=== PATIENT | female | born 1975 | race Caucasian/White ===

== ENCOUNTER 2018-03-01 12:43 | Inpatient (IN) | payer BC ==
[2018-03-01] MEDS ORDERED: Misoprostol 200 MCG Tab PO PRN (13:13)
[2018-03-01] MEDS ORDERED: Nalbuphine 10 MG/1 ML Vial IVPUSH PRN (13:13)
[2018-03-01] MEDS ORDERED: Methylergonovine 0.2 MG/1 ML Amp IM PRN (13:13)
[2018-03-01] MEDS ORDERED: Carboprost Tromethamine 250 MCG/1 ML Amp IM PRN ×2 (13:13→21:44)
[2018-03-01] MEDS ORDERED: Tranexamic Acid 1,000 MG in Sodium Chloride 0.9% 100 ML IV PRN (13:13)
[2018-03-01] MEDS ORDERED: Sodium Chloride 0.9% 10 ML Syringe FLUSH PRN (13:13)
[2018-03-01] MEDS ORDERED: Water For Irrigation,Sterile 1,000 ML Container IRR PRN (13:13)
[2018-03-01] MEDS ORDERED: Calcium Gluconate 10% 1 GM/10 ML SDV IV PRN (13:13)
[2018-03-01] MEDS ORDERED: Butorphanol 1 MG/ML SDV IVPUSH PRN (13:13)
[2018-03-01] MEDS ORDERED: Terbutaline 1 MG/ML SDV SUBCUT PRN (13:13)
[2018-03-01] MEDS ORDERED: Sodium Chloride 0.9% 2.5 ML Syringe FLUSH PRN (13:13)
[2018-03-01] MEDS ORDERED: Magnesium Sulfate/Water 4 GM in Premix Bag 1 BAG IV ONE (13:13)
[2018-03-01] MEDS ORDERED: Lidocaine 1% 50 ML MDV INJECT PRN (13:13)
[2018-03-01] MEDS ORDERED: Lactated Ringers 1,000 ML IV SCH (13:15)
[2018-03-01] MEDS ORDERED: Oxytocin/0.9 % Sodium Chloride 30 UNIT/500 ML BAG IV SCH ×2 (13:15)
[2018-03-01] MEDS: Sodium Chloride 0.9% 1,000 ML IV SCH ×2 (14:15→22:28)
[2018-03-01] MEDS: Magnesium Sulfate/Water 40 GM/1,000 ML BAG IV SCH (14:45)
[2018-03-01] MEDS ORDERED: Ropivacaine 0.2% 2 MG/ML 20 ML SDV ONE (19:38)
--- NOTE | 2018-03-01 20:12 | PCM.PREANE ---
Preanesthetic Assessment - Anesthesia/Transfusion/Family Hx Anesthesia History: Prior Anesthesia Without Reaction Other Type of Anesthesia Reaction Comment: difficulty waking up from anesthesia Family History of Anesthesia Reaction: No Transfusion History: No Prior Transfusion(s) - Review of Systems General: No Symptoms Pulmonary: No Symptoms Cardiovascular: No Symptoms Gastrointestinal: No Symptoms Neurological: No Symptoms Other: Reports: None - Physical Assessment NPO Status Date: 03/01/18 NPO Status Time: 12:00 Height: 1.61 m Weight: 80.467 kg ASA Class: 3 Mental Status: Alert & Oriented x3 Airway Class: Mallampati = 1 Dentition: Reports: Normal Dentition ROM/Head Extension: Full Lungs: Clear to Auscultation, Normal Respiratory Effort Cardiovascular: Regular Rate, Regular Rhythm - Lab Values: Laboratory Last Values WBC 6.61 K/uL (4.0-11.0) 03/01/18 13:45 RBC 3.58 M/uL (4.30-5.90) L 03/01/18 13:45 Hgb 11.4 g/dL (12.0-16.0) L 03/01/18 13:45 Hct 33.1 % (36.0-46.0) L 03/01/18 13:45 MCV 92.5 fL (80.0-98.0) 03/01/18 13:45 MCH 31.8 pg (27.0-32.0) 03/01/18 13:45 MCHC 34.4 g/dL (31.0-37.0) 03/01/18 13:45 RDW Std Deviation 45.4 fl (28.0-62.0) 03/01/18 13:45 RDW Coeff of Lashawn 14 % (11.0-15.0) 03/01/18 13:45 Plt Count 81 K/uL (150-400) L 03/01/18 13:45 MPV 13.50 fL (7.40-12.00) H 03/01/18 13:45 Nucleated RBC % 0.0 /100WBC 03/01/18 13:45 Nucleated RBCs # 0 K/uL 03/01/18 13:45 Magnesium 4.4 mg/dL (1.8-2.4) H 03/01/18 19:14 Blood Type A POSITIVE 03/01/18 13:45 Antibody Screen NEGATIVE 03/01/18 13:45 - Allergies Allergies/Adverse Reactions: Allergies Allergy/AdvReac Type Severity Reaction Status Date / Time latex Allergy Other Verified 06/22/17 11:46 - Acknowledgements Anesthesia Type Planned: Epidural Pt an Appropriate Candidate for the Planned Anesthesia: Yes Alternatives and Risks of Anesthesia Discussed w Pt/Guardian: Yes Pt/Guardian Understands and Agrees with Anesthesia Plan: Yes Additional Comments: twin , vertex,vertex, has thrombocytopenia plts 81k, and preeclampsia. Epidural placed without difficulty or signs of trauma. no comps. 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: Hematologic History: Reports: Other (See Below) Other Hematologic History: gestational thrombocytopenia - SUBSTANCE USE Smoking Status *Q: Former Smoker Tobacco Use Within Last Twelve Months: Cigarettes Second Hand Smoke Exposure: No Recreational Drug Use History: No - CURRENT (IN HOUSE) MEDS Current Meds: Current Medications Butorphanol Tartrate (Stadol) 1 mg IVPUSH Q1H PRN PRN Reason: Pain Calcium Gluconate (Calcium Gluconate) 1 gm IV ASDIRECTED PRN PRN Reason: respiratory distress Carboprost Tromethamine (Hemabate Ds) 250 mcg IM ASDIRECTED PRN PRN Reason: Post Hemorrhage Lactated Ringer's (Ringers, Lactated) 1,000 mls @ 150 mls/hr IV ASDIRECTED LOGAN Magnesium Sulfate (Magnesium Sulfate 40 Gm In Water 1000 Ml) 40 gm in 1,000 mls @ 50 mls/hr IV ASDIRECTED LOGAN Last Admin: 03/01/18 14:45 Dose: 2 gm/hr, 50 mls/hr Oxytocin/Sodium Chloride (Oxytocin 30 Unit/500 Ml-Ns) 30 unit in 500 mls @ 2 mls/hr IV TITRATE LOGAN; Protocol Last Titration: 03/01/18 17:59 Dose: 12 munits/min, 12 mls/hr Oxytocin/Sodium Chloride (Oxytocin 30 Unit/500 Ml-Ns) 30 unit in 500 mls @ 500 mls/hr IV TITRATE LOGAN Tranexamic Acid 1,000 mg/ (Sodium Chloride) 110 mls @ 660 mls/hr IV ONETIME PRN PRN Reason: Bleeding Lidocaine HCl (Xylocaine 1%) 50 ml INJECT ONETIME PRN PRN Reason: Laceration repair Methylergonovine Maleate (Methergine) 0.2 mg IM ASDIRECTED PRN PRN Reason: Post Hemorrhage Misoprostol (Cytotec) 200 mcg PO ONETIME PRN PRN Reason: Post Hemorrhage Nalbuphine HCl (Nubain) 10 mg IVPUSH Q1H PRN PRN Reason: Pain (severe 7-10) Sodium Chloride (Saline Flush) 10 ml FLUSH ASDIRECTED PRN PRN Reason: Keep Vein Open Sodium Chloride (Saline Flush) 2.5 ml FLUSH ASDIRECTED PRN PRN Reason: Keep Vein Open Sterile Water (Sterile Water For Irrigation) 1,000 ml IRR ASDIRECTED PRN PRN Reason: delivery Terbutaline Sulfate (Brethine) 0.25 mg SUBCUT ASDIRECTED PRN PRN Reason: Tacysystole Discontinued Medications Magnesium Sulfate 4 gm/ Premix 100 mls @ 300 mls/hr IV BOLUS ONE Stop: 03/01/18 13:32 Last Admin: 03/01/18 14:20 Dose: 300 mls/hr Fentanyl/Bupivacaine HCl (Jjomdcmn-Qqbal-Fk 2 Mcg/Ml-0.125%) Confirm Administered Dose 100 mls @ as directed EP .STK-MED ONE Stop: 03/01/18 19:38 Ropivacaine (Naropin 0.2%) Confirm Administered Dose 20 ml .ROUTE .STK-MED ONE Stop: 03/01/18 19:39
[2018-03-01] MEDS ORDERED: Benzocaine/Menthol 20%-0.5% Spray 78 GM Cannister ONE (21:44)
[2018-03-01] MEDS ORDERED: Benzocaine/Menthol 20%-0.5% Spray 78 GM Cannister TOP PRN (21:44)
[2018-03-01] MEDS ORDERED: Lanolin 100% Cream 7 GM Tube TOP PRN (21:44)
[2018-03-01] MEDS ORDERED: Bisacodyl 10 MG Supp RECTAL PRN (21:44)
[2018-03-01] MEDS ORDERED: Docusate Sodium 100 MG Cap ONE (21:44)
[2018-03-01] MEDS ORDERED: Witch Hazel Medicated Pads 40/Jar TOP PRN (21:44)
[2018-03-01] MEDS ORDERED: Acetaminophen 500 MG Tab PO PRN (21:44)
--- NOTE | 2018-03-01 21:56 | PCM.DEL ---
L & D Note - General Info Date of Service: 03/01/18 Mother's Due Date: 03/20/18 - Delivery Note Labor: Induced by Oxytocin Cervical Ripening Method: Oxytocin Delivery Outcome: Livebirth Delivery Method: Spontaneous Vaginal Delivery-Twins Presentation: Right Occiput Anterior (NEEL) (Twin A NEEL Twin B) Nuchal Cord: None (A none B) Prep: Other Anesthesia Type: Epidural Amniotic Fluid Description: Clear (A and B) Episiotomy Type: None Laceration: None Placenta: Intact, Spontaneous (Diamniotic possible monochorionic, await pathology results. ) Cord: 3 Vessels (A and B) Estimated Blood Loss: 300 Resuscitation Needed: No [place]: Suctioned Provider: Cherie Brady Score 1 min: 8 (B 9) Score 5 min: 9 (B 9) Second Stage Interventions: Reports: Pushing, Feet in Foot Rests Delivery Comments (Free Text/Narrative):: Baby A liveborn female 8/9 weight 3370 grams. Baby B 9/9 2020 grams. - General Info Date of Service: 03/01/18 - Patient Data Weight - Most Recent: 80.467 kg Lab Results Last 24 Hours: Laboratory Results - last 24 hr 03/01/18 03/01/18 03/01/18 Range/Units 13:45 13:45 19:14 WBC 6.61 (4.0-11.0) K/uL RBC 3.58 L (4.30-5.90) M/uL Hgb 11.4 L (12.0-16.0) g/dL Hct 33.1 L (36.0-46.0) % MCV 92.5 (80.0-98.0) fL MCH 31.8 (27.0-32.0) pg MCHC 34.4 (31.0-37.0) g/dL RDW Std Deviation 45.4 (28.0-62.0) fl RDW Coeff of Lashawn 14 (11.0-15.0) % Plt Count 81 L (150-400) K/uL MPV 13.50 H (7.40-12.00) fL Nucleated RBC % 0.0 /100WBC Nucleated RBCs # 0 K/uL Magnesium 4.4 H (1.8-2.4) mg/dL Blood Type A POSITIVE Antibody Screen NEGATIVE Med Orders - Current: Current Medications Acetaminophen (Tylenol Extra Strength) 500 mg PO Q4H PRN PRN Reason: Pain Acetaminophen (Tylenol Extra Strength) 1,000 mg PO Q4H PRN PRN Reason: Pain Benzocaine/Menthol (Dermoplast Pain Relief 20%-0.5% [place]) 78 gm TOP ASDIRECTED PRN PRN Reason: Perineal Comfort Measure Bisacodyl (Dulcolax) 10 mg RECTAL ONETIME PRN PRN Reason: Constipation Butorphanol Tartrate (Stadol) 1 mg IVPUSH Q1H PRN PRN Reason: Pain Calcium Gluconate (Calcium Gluconate) 1 gm IV ASDIRECTED PRN PRN Reason: respiratory distress Carboprost Tromethamine (Hemabate Ds) 250 mcg IM ASDIRECTED PRN PRN Reason: Post Hemorrhage Carboprost Tromethamine (Hemabate Ds) 250 mcg IM ASDIRECTED PRN PRN Reason: Excessive vaginal bleeding Docusate Sodium (Colace) 100 mg PO BID PRN PRN Reason: Constipation Emollient Ointment (Lansinoh Hpa) 0 gm TOP ASDIRECTED PRN PRN Reason: Sore Nipples Lactated Ringer's (Ringers, Lactated) 1,000 mls @ 150 mls/hr IV ASDIRECTED LOGAN Magnesium Sulfate (Magnesium Sulfate 40 Gm In Water 1000 Ml) 40 gm in 1,000 mls @ 50 mls/hr IV ASDIRECTED LOGAN Last Admin: 03/01/18 14:45 Dose: 2 gm/hr, 50 mls/hr Oxytocin/Sodium Chloride (Oxytocin 30 Unit/500 Ml-Ns) 30 unit in 500 mls @ 2 mls/hr IV TITRATE LOGAN; Protocol Last Titration: 03/01/18 17:59 Dose: 12 munits/min, 12 mls/hr Oxytocin/Sodium Chloride (Oxytocin 30 Unit/500 Ml-Ns) 30 unit in 500 mls @ 500 mls/hr IV TITRATE LOGAN Tranexamic Acid 1,000 mg/ (Sodium Chloride) 110 mls @ 660 mls/hr IV ONETIME PRN PRN Reason: Bleeding Lidocaine HCl (Xylocaine 1%) 50 ml INJECT ONETIME PRN PRN Reason: Laceration repair Methylergonovine Maleate (Methergine) 0.2 mg IM ASDIRECTED PRN PRN Reason: Post Hemorrhage Misoprostol (Cytotec) 200 mcg PO ONETIME PRN PRN Reason: Post Hemorrhage Nalbuphine HCl (Nubain) 10 mg IVPUSH Q1H PRN PRN Reason: Pain (severe 7-10) Oxycodone HCl (Oxycodone) 5 mg PO Q2H PRN PRN Reason: Pain Sodium Chloride (Saline Flush) 10 ml FLUSH ASDIRECTED PRN PRN Reason: Keep Vein Open Sodium Chloride (Saline Flush) 2.5 ml FLUSH ASDIRECTED PRN PRN Reason: Keep Vein Open Sterile Water (Sterile Water For Irrigation) 1,000 ml IRR ASDIRECTED PRN PRN Reason: delivery Terbutaline Sulfate (Brethine) 0.25 mg SUBCUT ASDIRECTED PRN PRN Reason: Tacysystole Witch Marci (Tucks) 1 pad TOP ASDIRECTED PRN PRN Reason: comfort care Discontinued Medications Benzocaine/Menthol (Dermoplast Pain Relief 20%-0.5% [place]) Confirm Administered Dose 78 gm .ROUTE .STK-MED ONE Stop: 03/01/18 21:45 Docusate Sodium (Colace) Confirm Administered Dose 100 mg .ROUTE .STK-MED ONE Stop: 03/01/18 21:45 Magnesium Sulfate 4 gm/ Premix 100 mls @ 300 mls/hr IV BOLUS ONE Stop: 03/01/18 13:32 Last Admin: 03/01/18 14:20 Dose: 300 mls/hr Fentanyl/Bupivacaine HCl (Uagmfesr-Yxflx-Eq 2 Mcg/Ml-0.125%) Confirm Administered Dose 100 mls @ as directed EP .STK-MED ONE Stop: 03/01/18 19:38 Ropivacaine (Naropin 0.2%) Confirm Administered Dose 20 ml .ROUTE .STK-MED ONE Stop: 03/01/18 19:39 - Problem List & Annotations (1) Twin SNOMED Code(s): 04725291 Code(s): Z37.9 - OUTCOME OF DELIVERY, UNSPECIFIED Status: Acute Current Visit: Yes (2) Preeclampsia SNOMED Code(s): 281464285 Code(s): O14.90 - UNSPECIFIED PRE-ECLAMPSIA, UNSPECIFIED TRIMESTER Status: Acute Current Visit: Yes (3) Gestational thrombocytopenia without hemorrhage SNOMED Code(s): 008914395 Code(s): O99.119 - OTH DIS OF BLD/BLD-FORM ORG/IMMUN MECHNSM COMP PREG,UNSP TRI; D69.6 - THROMBOCYTOPENIA, UNSPECIFIED Status: Acute Current Visit: Yes (4) Elderly multigravida delivered SNOMED Code(s): 695814289 Code(s): O09.529 - SUPERVISION OF ELDERLY MULTIGRAVIDA, UNSPECIFIED TRIMESTER Status: Acute Current Visit: Yes - Problem List Review Problem List Initiated/Reviewed/Updated: Yes - My Orders Last 24 Hours: My Active Orders 03/01/18 13:13 Bedrest Bathroom Privileges [RC] ASDIRECTED Bedrest [RC] ASDIRECTED Communication Order [RC] PRN Height and Weight [RC] DAILY Intake and Output [RC] QSHIFT May Shower [RC] ASDIRECTED Notify Provider [RC] PRN Oxygen Therapy [RC] ASDIRECTED Up ad Rina [RC] ASDIRECTED Vital Signs [RC] ASDIRECTED Butorphanol [Stadol] 1 mg IVPUSH Q1H PRN Calcium Gluconate 1 gm IV ASDIRECTED PRN Carboprost Tromethamine [Hemabate DS] 250 mcg IM ASDIRECTED PRN Lidocaine 1% [Xylocaine 1%] 50 ml INJECT ONETIME PRN Methylergonovine [Methergine] 0.2 mg IM ASDIRECTED PRN Nalbuphine [Nubain] 10 mg IVPUSH Q1H PRN Sodium Chloride 0.9% [Saline Flush] 10 ml FLUSH ASDIRECTED PRN Sodium Chloride 0.9% [Saline Flush] 2.5 ml FLUSH ASDIRECTED PRN Terbutaline [Brethine] 0.25 mg SUBCUT ASDIRECTED PRN Tranexamic Acid [Cyklokapron] 1,000 mg Sodium Chloride 0.9% [Normal Saline] 100 ml IV ONETIME Water For Irrigation,Sterile [Sterile Water for Irrigation] 1,000 ml IRR ASDIRECTED PRN miSOPROStol [Cytotec] 200 mcg PO ONETIME PRN Electronic Heart Tones Ext w TOCO [WOMSER] Per Unit Routine Scalp Electrode [WOMSER] Per Unit Routine Peripheral IV Insertion Adult [OM.PC] Routine Peripheral IV Insertion Adult [OM.PC] Routine Resuscitation Status Routine 03/01/18 13:15 Lactated Ringers [Ringers, Lactated] 1,000 ml IV ASDIRECTED Magnesium Sulfate/Water [Magnesium Sulfate 40 GM in Water 1000 ML] 40 gm in 1, 000 ml IV ASDIRECTED Oxytocin/0.9 % Sodium Chloride [Oxytocin 30 Unit/500 ML-NS] 30 unit in 500 ml IV TITRATE Oxytocin/0.9 % Sodium Chloride [Oxytocin 30 Unit/500 ML-NS] 30 unit in 500 ml IV TITRATE Deep Tendon Reflexes [WOMSER] Q1H Medication Administration Instruction [OM.PC] Q3H 03/01/18 13:18 Equipment to Bedside [RC] PRN Notify Provider Status Change [RC] ASDIRECTED 03/01/18 14:15 Deep Tendon Reflexes [WOMSER] Q1H 03/01/18 15:15 Deep Tendon Reflexes [WOMSER] Q1H 03/01/18 16:15 Deep Tendon Reflexes [WOMSER] Q1H 03/01/18 17:15 Deep Tendon Reflexes [WOMSER] Q1H 03/01/18 18:15 Deep Tendon Reflexes [WOMSER] Q1H 03/01/18 19:15 Deep Tendon Reflexes [WOMSER] Q1H 03/01/18 20:15 Deep Tendon Reflexes [WOMSER] Q1H 03/01/18 21:00 BLOOD GAS ARTERIAL UMBILICAL [BG] Routine BLOOD GAS VENOUS UMBILICAL [BG] Routine 03/01/18 21:05 BLOOD GAS ARTERIAL UMBILICAL [BG] Urgent BLOOD GAS VENOUS UMBILICAL [BG] Urgent 03/01/18 21:15 Deep Tendon Reflexes [WOMSER] Q1H 03/01/18 21:44 Patient Status [ADT] Routine Vital Signs [RC] PER UNIT ROUTINE Acetaminophen [Tylenol Extra Strength] 1,000 mg PO Q4H PRN Acetaminophen [Tylenol Extra Strength] 500 mg PO Q4H PRN Benzocaine/Menthol [Dermoplast Pain Relief 20%-0.5% [place]] 78 gm TOP ASDIRECTED PRN Bisacodyl [Dulcolax] 10 mg RECTAL ONETIME PRN Carboprost Tromethamine [Hemabate DS] 250 mcg IM ASDIRECTED PRN Docusate Sodium [Colace] 100 mg PO BID PRN Lanolin [Lansinoh HPA] See Dose Instructions TOP ASDIRECTED PRN Sunita Covarrubias [Tucks] 1 pad TOP ASDIRECTED PRN oxyCODONE 5 mg PO Q2H PRN Assess Lochia [WOMSER] Per Unit Routine Assess Uterine Involution [WOMSER] Per Unit Routine Perineal Care [OM.PC] Per Unit Routine Peripheral IV Discontinue [OM.PC] Routine 03/01/18 21:45 Notify Provider Vital Signs [RC] ASDIRECTED 03/01/18 22:15 Deep Tendon Reflexes [WOMSER] Q1H 03/01/18 23:15 Deep Tendon Reflexes [WOMSER] Q1H 03/01/18 Dinner Clear Liquid Diet [DIET] 03/02/18 00:15 Deep Tendon Reflexes [WOMSER] Q1H 03/02/18 01:00 MAGNESIUM [CHEM] Q6 03/02/18 01:15 Deep Tendon Reflexes [WOMSER] Q1H 03/02/18 02:15 Deep Tendon Reflexes [WOMSER] Q1H 03/02/18 03:15 Deep Tendon Reflexes [WOMSER] Q1 03/02/18 04:15 Deep Tendon Reflexes [WOMSER] Q1 03/02/18 05:11 CBC W/O DIFF,HEMOGRAM [HEME] AM 03/02/18 05:15 Deep Tendon Reflexes [WOMSER] Q1H 03/02/18 06:15 Deep Tendon Reflexes [WOMSER] Q1H 03/02/18 07:00 MAGNESIUM [CHEM] Q6H 03/02/18 07:15 Deep Tendon Reflexes [WOMSER] Q1H 03/02/18 08:15 Deep Tendon Reflexes [WOMSER] Q1 03/02/18 09:15 Deep Tendon Reflexes [WOMSER] Q1 03/02/18 10:15 Deep Tendon Reflexes [WOMSER] Q1H 03/02/18 11:15 Deep Tendon Reflexes [WOMSER] Q1H 03/02/18 12:15 Deep Tendon Reflexes [WOMSER] Q1H 03/02/18 13:00 MAGNESIUM [CHEM] Q6H 03/02/18 19:00 MAGNESIUM [CHEM] Q6H 03/03/18 01:00 MAGNESIUM [CHEM] Q6H 03/03/18 07:00 MAGNESIUM [CHEM] Q6H 03/03/18 13:00 MAGNESIUM [CHEM] Q6H
[2018-03-01] MEDS: Docusate Sodium 100 MG Cap PO PRN (23:07)
--- NOTE | 2018-03-02 02:14 | OR ---
SURGEON: Summer Lemon M.D. DATE OF PROCEDURE: 03/01/2018 PREOPERATIVE DIAGNOSES: 1. 37 and 2/7 week intrauterine . 2. Diamniotic dichorionic twin gestation, advanced maternal age. 3. Mild preeclampsia. 4. Gestational thrombocytopenia. 5. Discordant growth. POSTOPERATIVE DIAGNOSES: 1. 37 and 2/7 week intrauterine . 2. Diamniotic dichorionic twin gestation, advanced maternal age. 3. Mild preeclampsia. 4. Gestational thrombocytopenia. 5. Discordant growth. PROCEDURE: 1. Pitocin induction of labor. 2. Magnesium seizure prophylaxis. 3. Term spontaneous vaginal delivery of twin gestation. ANESTHESIA: Epidural. ESTIMATED BLOOD LOSS: Less than 300 mL. FINDINGS: Fetus A, liveborn female, score 8 and 9, weighing 7 pounds, 7 ounces or 3370 g. Fetus B, liveborn female, scores 9 and 9. Weighing 2020 g or 4 pounds 7 ounces. Placenta delivered spontaneously, Ellis intact. Both cords had 3 vessels. Diamniotic placenta was noted, unable to determine chorionicity. Will send placenta to Pathology. COMPLICATIONS: None known. DISPOSITION: Mother and infants are in LDRP in good condition. BRIEF HISTORY: This is a 42-year-old female, she is G5, P4. She presents with a spontaneous conceived diamniotic dichorionic twin gestation. She has been followed through the being on aspirin through 34 weeks' gestation due to risk of preeclampsia. She discontinued her aspirin 3 weeks ago. She has been followed with serial growth ultrasounds as well as antepartum surveillance. We have been aware of discordant growth. However, surveillance has been reassuring. She has developed gestational thrombocytopenia as she had in each of her previous pregnancies. Most recently however, platelets have fallen below 100, and were 87 on Thursday and currently 81. Additionally, she developed mild proteinuria and blood pressures in the 140s over 80s range. Therefore, she is being induced at 37 and 2/7 weeks' gestation for mild preeclampsia. She presented to Labor and Delivery. Category 1 heart tones for both fetuses confirm cephalic-cephalic presentation. She was 3 to 4 cm dilated. She received Pitocin. When she was 4 cm dilated, artificial rupture of membranes was performed. Clear fluid was noted. She was known to be group B strep negative. Shortly after artificial rupture of membranes, she requested an epidural, and she had some pain relief with the epidural, but began to feel more intense pain shortly thereafter and evaluation revealed that she was 9+ cm. She was transferred to the operating room for a double setup for a vaginal twin delivery with the presence of Anesthesia, OR crew, ultrasound, and sole scraper. DESCRIPTION OF PROCEDURE: With the patient in dorsal lithotomy position, the patient pushed over a 10- minute time period to a 5+ station, at which time the head was then delivered spontaneously and atraumatically over the perineum with support with subsequent delivery of the 's shoulders and body without any difficulty. The was bulb suctioned by nose and mouth. The cord was clamped x2 and cut, and the was handed to the mother in the presence of nurse attending delivery. The A was a liveborn female, score 8 and 9, weighing 3370 g. A section of the cord was preserved on the table to be utilized for cord pH's after delivery of the second infant. An umbilical cord clamp was placed on the proximal end of the umbilical cord of cord A attached to the placenta. Ultrasound was utilized to confirm cephalic presentation of B. heart tones were 135 to 138 for B and this was observed more easily with ultrasound as there was some difficulty with Doppler and heart tones. The Pitocin was continued. When the head presented to the level of the cervix, artificial rupture of membranes was performed. Clear fluid was noted. The head continued to descend and the patient was encouraged to push and 16 minutes after fetus A, fetus B was delivered. With the head delivered over the perineum with support subsequent to the delivery of the infant's shoulders and body without any difficulty, the infant was bulb suctioned by nose and mouth. The cord was clamped x2 and cut. The infant was handed to the mother in the presence of the nurse attending delivery. This infant was a liveborn female, scores 9 and 9, weighing 2020 g. Cord blood was collected for cord ABGs of B as well as routine cord blood sampling. The cord blood was then collected off the preserved segment of the cord for A and sent for cord ABGs as well as routine cord blood sampling. Pitocin was initiated after delivery of the to assist with delivery of the placenta which was delivered spontaneously, Ellis intact. Both cords had 3 vessels that was clearly a diamniotic placenta. The chorionicity was in question and the placenta was sent to Pathology. Upon inspection of pelvis and perineum, there were no periurethral, vaginal sidewall, cervical, rectal, or perineal lacerations. EBL was less than 300 mL. There were no known complications. Mother was transferred to an LDRP in good condition and infants after being assessed in the nursery are now in the LDRP with the mother. DANISH ALLEN /[id number]
[2018-03-02] MEDS: Acetaminophen 500 MG Tab PO PRN ×2 (05:06→21:10)
--- NOTE | 2018-03-02 07:44 | PCM.PNPP ---
- General Info Date of Service: 03/02/18 Functional Status: Reports: Pain Controlled (mild headache resolved with Tylenol ), Tolerating Diet (clear, denies nausea), Ambulating, Urinating - Review of Systems General: Reports: No Symptoms HEENT: Reports: No Symptoms Pulmonary: Reports: No Symptoms Cardiovascular: Reports: No Symptoms Gastrointestinal: Reports: No Symptoms Genitourinary: Reports: No Symptoms Musculoskeletal: Reports: No Symptoms Skin: Reports: No Symptoms Neurological: Reports: No Symptoms Psychiatric: Reports: No Symptoms - Patient Data Vital Signs - Most Recent: Last Vital Signs Temp 37.0 C 03/02/18 05:30 Pulse 94 03/02/18 06:30 Resp 19 03/02/18 06:30 BP 145/85 H 03/02/18 06:30 Pulse Ox 97 03/02/18 06:30 Weight - Most Recent: 80.467 kg I&O - Last 24 Hours: Intake & Output 03/01/18 03/02/18 03/02/18 22:59 06:59 14:59 Intake Total 1503 500 Balance 1503 500 Lab Results - Last 24 Hours: Laboratory Results - last 24 hr 03/01/18 03/01/18 03/01/18 Range/Units 13:45 13:45 19:14 WBC 6.61 (4.0-11.0) K/uL RBC 3.58 L (4.30-5.90) M/uL Hgb 11.4 L (12.0-16.0) g/dL Hct 33.1 L (36.0-46.0) % MCV 92.5 (80.0-98.0) fL MCH 31.8 (27.0-32.0) pg MCHC 34.4 (31.0-37.0) g/dL RDW Std Deviation 45.4 (28.0-62.0) fl RDW Coeff of Lashawn 14 (11.0-15.0) % Plt Count 81 L (150-400) K/uL MPV 13.50 H (7.40-12.00) fL Nucleated RBC % 0.0 /100WBC Nucleated RBCs # 0 K/uL Cord ABG pH (7.18-7.38) Cord ABG Base Excess (-10--2) Cord VBG pH (7.25-7.45) Cord VBG Base Excess (-10--2) Magnesium 4.4 H (1.8-2.4) mg/dL Blood Type A POSITIVE Antibody Screen NEGATIVE 03/01/18 03/01/18 03/02/18 Range/Units 20:42 20:58 00:45 WBC (4.0-11.0) K/uL RBC (4.30-5.90) M/uL Hgb (12.0-16.0) g/dL Hct (36.0-46.0) % MCV (80.0-98.0) fL MCH (27.0-32.0) pg MCHC (31.0-37.0) g/dL RDW Std Deviation (28.0-62.0) fl RDW Coeff of Lashawn (11.0-15.0) % Plt Count (150-400) K/uL MPV (7.40-12.00) fL Nucleated RBC % /100WBC Nucleated RBCs # K/uL Cord ABG pH 7.254 7.180 (7.18-7.38) Cord ABG Base Excess -7 -8 (-10--2) Cord VBG pH 7.317 7.231 L (7.25-7.45) Cord VBG Base Excess -5 -7 (-10--2) Magnesium 4.8 H (1.8-2.4) mg/dL Blood Type Antibody Screen 03/02/18 03/02/18 Range/Units 06:42 06:42 WBC 11.78 H (4.0-11.0) K/uL RBC 3.30 L (4.30-5.90) M/uL Hgb 10.5 L (12.0-16.0) g/dL Hct 30.2 L (36.0-46.0) % MCV 91.5 (80.0-98.0) fL MCH 31.8 (27.0-32.0) pg MCHC 34.8 (31.0-37.0) g/dL RDW Std Deviation 45.2 (28.0-62.0) fl RDW Coeff of Lashawn 14 (11.0-15.0) % Plt Count 87 L (150-400) K/uL MPV 12.80 H (7.40-12.00) fL Nucleated RBC % 0.0 /100WBC Nucleated RBCs # 0 K/uL Cord ABG pH (7.18-7.38) Cord ABG Base Excess (-10--2) Cord VBG pH (7.25-7.45) Cord VBG Base Excess (-10--2) Magnesium 5.7 H (1.8-2.4) mg/dL Blood Type Antibody Screen Med Orders - Current: Current Medications Acetaminophen (Tylenol Extra Strength) 500 mg PO Q4H PRN PRN Reason: Pain Acetaminophen (Tylenol Extra Strength) 1,000 mg PO Q4H PRN PRN Reason: Pain Last Admin: 03/02/18 05:06 Dose: 1,000 mg Benzocaine/Menthol (Dermoplast Pain Relief 20%-0.5% [place]) 0 gm TOP ASDIRECTED PRN PRN Reason: Perineal Comfort Measure Last Admin: 03/01/18 23:07 Dose: 1 canister Bisacodyl (Dulcolax) 10 mg RECTAL ONETIME PRN PRN Reason: Constipation Butorphanol Tartrate (Stadol) 1 mg IVPUSH Q1H PRN PRN Reason: Pain Calcium Gluconate (Calcium Gluconate) 1 gm IV ASDIRECTED PRN PRN Reason: respiratory distress Carboprost Tromethamine (Hemabate Ds) 250 mcg IM ASDIRECTED PRN PRN Reason: Post Hemorrhage Carboprost Tromethamine (Hemabate Ds) 250 mcg IM ASDIRECTED PRN PRN Reason: Excessive vaginal bleeding Docusate Sodium (Colace) 100 mg PO BID PRN PRN Reason: Constipation Last Admin: 03/01/18 23:07 Dose: 100 mg Emollient Ointment (Lansinoh Hpa) 0 gm TOP ASDIRECTED PRN PRN Reason: Sore Nipples Lactated Ringer's (Ringers, Lactated) 1,000 mls @ 150 mls/hr IV ASDIRECTED LOGAN Magnesium Sulfate (Magnesium Sulfate 40 Gm In Water 1000 Ml) 40 gm in 1,000 mls @ 37.5 mls/hr IV ASDIRECTED LOGAN Stop: 03/02/18 21:00 Last Admin: 03/01/18 14:45 Dose: 2 gm/hr, 50 mls/hr Oxytocin/Sodium Chloride (Oxytocin 30 Unit/500 Ml-Ns) 30 unit in 500 mls @ 2 mls/hr IV TITRATE LOGAN; Protocol Last Titration: 03/01/18 17:59 Dose: 12 munits/min, 12 mls/hr Oxytocin/Sodium Chloride (Oxytocin 30 Unit/500 Ml-Ns) 30 unit in 500 mls @ 500 mls/hr IV TITRATE LOGAN Last Infusion: 03/01/18 22:03 Dose: 125 mls/hr Tranexamic Acid 1,000 mg/ (Sodium Chloride) 110 mls @ 660 mls/hr IV ONETIME PRN PRN Reason: Bleeding Sodium Chloride (Normal Saline) 1,000 mls @ 5 mls/hr IV ASDIRECTED LOGAN Last Admin: 03/01/18 22:28 Dose: 5 mls/hr Lidocaine HCl (Xylocaine 1%) 50 ml INJECT ONETIME PRN PRN Reason: Laceration repair Methylergonovine Maleate (Methergine) 0.2 mg IM ASDIRECTED PRN PRN Reason: Post Hemorrhage Misoprostol (Cytotec) 200 mcg PO ONETIME PRN PRN Reason: Post Hemorrhage Nalbuphine HCl (Nubain) 10 mg IVPUSH Q1H PRN PRN Reason: Pain (severe 7-10) Oxycodone HCl (Oxycodone) 5 mg PO Q2H PRN PRN Reason: Pain Sodium Chloride (Saline Flush) 10 ml FLUSH ASDIRECTED PRN PRN Reason: Keep Vein Open Sodium Chloride (Saline Flush) 2.5 ml FLUSH ASDIRECTED PRN PRN Reason: Keep Vein Open Sterile Water (Sterile Water For Irrigation) 1,000 ml IRR ASDIRECTED PRN PRN Reason: delivery Terbutaline Sulfate (Brethine) 0.25 mg SUBCUT ASDIRECTED PRN PRN Reason: Tacysystole Witch Marci (Tucks) 1 pad TOP ASDIRECTED PRN PRN Reason: comfort care Discontinued Medications Benzocaine/Menthol (Dermoplast Pain Relief 20%-0.5% [place]) Confirm Administered Dose 78 gm .ROUTE .STK-MED ONE Stop: 03/01/18 21:45 Docusate Sodium (Colace) Confirm Administered Dose 100 mg .ROUTE .STK-MED ONE Stop: 03/01/18 21:45 Magnesium Sulfate 4 gm/ Premix 100 mls @ 300 mls/hr IV BOLUS ONE Stop: 03/01/18 13:32 Last Admin: 03/01/18 14:20 Dose: 300 mls/hr Fentanyl/Bupivacaine HCl (Sqdryrpm-Qjyjn-Ly 2 Mcg/Ml-0.125%) Confirm Administered Dose 100 mls @ as directed EP .STK-MED ONE Stop: 03/01/18 19:38 Ropivacaine (Naropin 0.2%) Confirm Administered Dose 20 ml .ROUTE .STK-MED ONE Stop: 03/01/18 19:39 - Infant Interaction Disposition, : [place] to Nursery Infant Feeding: Breastfed Infant; Nursed Well Support Person: Significant Other - Recovery Exam Fundal Tone: Firm Fundal Level: At Umbilicus Fundal Placement: Midline Lochia Amount: Scant, Small Lochia Color: Rubra/Red Perineum Description: Intact, Minimal Bruising/Swelling Episiotomy/Laceration: None Bladder Status: Voiding Urinary Elimination: Voided - Exam General: Alert Neck: Supple Lungs: Clear to Auscultation, Normal Respiratory Effort Cardiovascular: Regular Rate, Regular Rhythm GI/Abdominal Exam: Normal Bowel Sounds, Soft, Non-Tender Extremities: Normal Inspection, Normal Range of Motion, Pedal Edema (1+ bilateral) Skin: Warm, Dry, Intact Neurological: No New Focal Deficit Psy/Mental Status: Alert, Normal Affect, Normal Mood - Problem List & Annotations (1) Twin SNOMED Code(s): 17673143 Code(s): Z37.9 - OUTCOME OF DELIVERY, UNSPECIFIED Status: Acute Current Visit: Yes (2) Preeclampsia SNOMED Code(s): 316811518 Code(s): O14.90 - UNSPECIFIED PRE-ECLAMPSIA, UNSPECIFIED TRIMESTER Status: Acute Current Visit: Yes (3) Gestational thrombocytopenia without hemorrhage SNOMED Code(s): 680515514 Code(s): O99.119 - OTH DIS OF BLD/BLD-FORM ORG/IMMUN MECHNSM COMP PREG,UNSP TRI; D69.6 - THROMBOCYTOPENIA, UNSPECIFIED Status: Acute Current Visit: Yes Qualifiers: Trimester: third trimester Qualified Code(s): O99.113 - Other diseases of the blood and blood-forming organs and certain disorders involving the immune mechanism complicating , third trimester; D69.6 - Thrombocytopenia, unspecified (4) Elderly multigravida delivered SNOMED Code(s): 919054246 Code(s): O09.529 - SUPERVISION OF ELDERLY MULTIGRAVIDA, UNSPECIFIED TRIMESTER Status: Acute Current Visit: Yes - Problem List Review Problem List Initiated/Reviewed/Updated: Yes - My Orders Last 24 Hours: My Active Orders 03/01/18 13:13 Bedrest [RC] ASDIRECTED Communication Order [RC] PRN Height and Weight [RC] DAILY Intake and Output [RC] QSHIFT May Shower [RC] ASDIRECTED Notify Provider [RC] PRN Oxygen Therapy [RC] ASDIRECTED Up ad Rina [RC] ASDIRECTED Vital Signs [RC] ASDIRECTED Butorphanol [Stadol] 1 mg IVPUSH Q1H PRN Calcium Gluconate 1 gm IV ASDIRECTED PRN Carboprost Tromethamine [Hemabate DS] 250 mcg IM ASDIRECTED PRN Lidocaine 1% [Xylocaine 1%] 50 ml INJECT ONETIME PRN Methylergonovine [Methergine] 0.2 mg IM ASDIRECTED PRN Nalbuphine [Nubain] 10 mg IVPUSH Q1H PRN Sodium Chloride 0.9% [Saline Flush] 10 ml FLUSH ASDIRECTED PRN Sodium Chloride 0.9% [Saline Flush] 2.5 ml FLUSH ASDIRECTED PRN Terbutaline [Brethine] 0.25 mg SUBCUT ASDIRECTED PRN Tranexamic Acid [Cyklokapron] 1,000 mg Sodium Chloride 0.9% [Normal Saline] 100 ml IV ONETIME Water For Irrigation,Sterile [Sterile Water for Irrigation] 1,000 ml IRR ASDIRECTED PRN miSOPROStol [Cytotec] 200 mcg PO ONETIME PRN Electronic Heart Tones Ext w TOCO [WOMSER] Per Unit Routine Scalp Electrode [WOMSER] Per Unit Routine Peripheral IV Insertion Adult [OM.PC] Routine Peripheral IV Insertion Adult [OM.PC] Routine Resuscitation Status Routine 03/01/18 13:15 Lactated Ringers [Ringers, Lactated] 1,000 ml IV ASDIRECTED Magnesium Sulfate/Water [Magnesium Sulfate 40 GM in Water 1000 ML] 40 gm in 1, 000 ml IV ASDIRECTED Oxytocin/0.9 % Sodium Chloride [Oxytocin 30 Unit/500 ML-NS] 30 unit in 500 ml IV TITRATE Oxytocin/0.9 % Sodium Chloride [Oxytocin 30 Unit/500 ML-NS] 30 unit in 500 ml IV TITRATE Deep Tendon Reflexes [WOMSER] Q1H Medication Administration Instruction [OM.PC] Q3H 03/01/18 13:18 Equipment to Bedside [RC] PRN Notify Provider Status Change [RC] ASDIRECTED 03/01/18 13:30 Sodium Chloride 0.9% [Normal Saline] 1,000 ml IV ASDIRECTED 03/01/18 14:15 Deep Tendon Reflexes [WOMSER] Q1H 03/01/18 15:15 Deep Tendon Reflexes [WOMSER] Q1H 03/01/18 16:15 Deep Tendon Reflexes [WOMSER] Q1H 03/01/18 17:15 Deep Tendon Reflexes [WOMSER] Q1H 03/01/18 18:15 Deep Tendon Reflexes [WOMSER] Q1H 03/01/18 19:15 Deep Tendon Reflexes [WOMSER] Q1H 03/01/18 20:15 Deep Tendon Reflexes [WOMSER] Q1H 03/01/18 21:15 Deep Tendon Reflexes [WOMSER] Q1H 03/01/18 21:44 Patient Status [ADT] Routine Acetaminophen [Tylenol Extra Strength] 1,000 mg PO Q4H PRN Acetaminophen [Tylenol Extra Strength] 500 mg PO Q4H PRN Benzocaine/Menthol [Dermoplast Pain Relief 20%-0.5% [place]] 0 gm TOP ASDIRECTED PRN Bisacodyl [Dulcolax] 10 mg RECTAL ONETIME PRN Carboprost Tromethamine [Hemabate DS] 250 mcg IM ASDIRECTED PRN Docusate Sodium [Colace] 100 mg PO BID PRN Lanolin [Lansinoh HPA] See Dose Instructions TOP ASDIRECTED PRN Witch Marci [Tucks] 1 pad TOP ASDIRECTED PRN oxyCODONE 5 mg PO Q2H PRN Assess Lochia [WOMSER] Per Unit Routine Assess Uterine Involution [WOMSER] Per Unit Routine Perineal Care [OM.PC] Per Unit Routine Peripheral IV Discontinue [OM.PC] Routine 03/01/18 21:45 Notify Provider Vital Signs [RC] ASDIRECTED 03/01/18 22:15 Deep Tendon Reflexes [WOMSER] Q1H 03/01/18 23:15 Deep Tendon Reflexes [WOMSER] Q1 03/01/18 Dinner Clear Liquid Diet [DIET] 03/02/18 00:15 Deep Tendon Reflexes [WOMSER] Q1 03/02/18 01:15 Deep Tendon Reflexes [WOMSER] [facility] 03/02/18 02:15 Deep Tendon Reflexes [WOMSER] [facility] 03/02/18 03:15 Deep Tendon Reflexes [WOMSER] [facility] 03/02/18 04:15 Deep Tendon Reflexes [WOMSER] [facility] 03/02/18 05:15 Deep Tendon Reflexes [WOMSER] [facility] 03/02/18 06:15 Deep Tendon Reflexes [WOMSER] [facility] 03/02/18 07:15 Deep Tendon Reflexes [WOMSER] [facility] 03/02/18 08:15 Deep Tendon Reflexes [WOMSER] [facility] 03/02/18 09:15 Deep Tendon Reflexes [WOMSER] [facility] 03/02/18 10:15 Deep Tendon Reflexes [WOMSER] [facility] 03/02/18 11:15 Deep Tendon Reflexes [WOMSER] [facility] 03/02/18 12:15 Deep Tendon Reflexes [WOMSER] [facility] 03/02/18 13:00 MAGNESIUM [CHEM] Q6H 03/02/18 19:00 MAGNESIUM [CHEM] Q6H 03/02/18 Dinner Regular Diet [DIET] 03/03/18 01:00 MAGNESIUM [CHEM] Q6H 03/03/18 07:00 MAGNESIUM [CHEM] Q6H 03/03/18 13:00 MAGNESIUM [CHEM] Q6H - Assessment Assessment:: PPD#1 after , induction twins 37 weeks, mild preeclampsia, gestational thrombocytopenia. Platelets improving, BP are stable, tolerating magnesium, good diuresis - Plan Plan:: Continue magnesium until 24 hour . Rate decreased due to mg level. Continue prn labetalol as needed (none has been given to this point). Recheck platelets in am.
[2018-03-02] MEDS: Magnesium Sulfate/Water 40 GM/1,000 ML BAG IV SCH (10:59)
[2018-03-02] MEDS: Docusate Sodium 100 MG Cap PO PRN (10:59)
[2018-03-03] MEDS: oxyCODONE 5 MG Tab PO PRN ×2 (04:26→08:52)
--- NOTE | 2018-03-03 08:48 | PCM.PNPP ---
- General Info Date of Service: 03/03/18 Admission Dx/Problem (Free Text): 37 2/7 weeks, twin gestation, discordant growth, mild pre-eclampsia, gestational thrombocytopenia. Functional Status: Reports: Pain Controlled, Tolerating Diet, Ambulating, Urinating - Review of Systems General: Reports: No Symptoms HEENT: Reports: No Symptoms Pulmonary: Reports: No Symptoms Cardiovascular: Reports: No Symptoms Gastrointestinal: Reports: No Symptoms Genitourinary: Reports: No Symptoms Musculoskeletal: Reports: No Symptoms Skin: Reports: No Symptoms Neurological: Reports: No Symptoms Psychiatric: Reports: No Symptoms - Patient Data Vital Signs - Most Recent: Last Vital Signs Temp 37.1 C 03/03/18 04:30 Pulse 88 03/03/18 05:30 Resp 18 03/03/18 05:30 BP 138/70 03/03/18 05:30 Pulse Ox 96 03/03/18 05:30 Weight - Most Recent: 71.271 kg I&O - Last 24 Hours: Intake & Output 03/02/18 03/03/18 03/03/18 22:59 06:59 14:59 Output Total 900 1700 Balance -900 -1700 Lab Results - Last 24 Hours: Laboratory Results - last 24 hr 03/02/18 03/02/18 03/03/18 Range/Units 13:15 18:53 05:00 WBC 8.04 (4.0-11.0) K/uL RBC 3.22 L (4.30-5.90) M/uL Hgb 10.2 L (12.0-16.0) g/dL Hct 30.1 L (36.0-46.0) % MCV 93.5 (80.0-98.0) fL MCH 31.7 (27.0-32.0) pg MCHC 33.9 (31.0-37.0) g/dL RDW Std Deviation 46.7 (28.0-62.0) fl RDW Coeff of Lashawn 14 (11.0-15.0) % Plt Count 97 L (150-400) K/uL MPV 12.80 H (7.40-12.00) fL Nucleated RBC % 0.0 /100WBC Nucleated RBCs # 0 K/uL Magnesium 5.0 H 4.6 H (1.8-2.4) mg/dL Med Orders - Current: Current Medications Acetaminophen (Tylenol Extra Strength) 500 mg PO Q4H PRN PRN Reason: Pain Acetaminophen (Tylenol Extra Strength) 1,000 mg PO Q4H PRN PRN Reason: Pain Last Admin: 03/02/18 21:10 Dose: 1,000 mg Benzocaine/Menthol (Dermoplast Pain Relief 20%-0.5% [place]) 0 gm TOP ASDIRECTED PRN PRN Reason: Perineal Comfort Measure Last Admin: 03/01/18 23:07 Dose: 1 canister Bisacodyl (Dulcolax) 10 mg RECTAL ONETIME PRN PRN Reason: Constipation Butorphanol Tartrate (Stadol) 1 mg IVPUSH Q1H PRN PRN Reason: Pain Calcium Gluconate (Calcium Gluconate) 1 gm IV ASDIRECTED PRN PRN Reason: respiratory distress Carboprost Tromethamine (Hemabate Ds) 250 mcg IM ASDIRECTED PRN PRN Reason: Post Hemorrhage Carboprost Tromethamine (Hemabate Ds) 250 mcg IM ASDIRECTED PRN PRN Reason: Excessive vaginal bleeding Docusate Sodium (Colace) 100 mg PO BID PRN PRN Reason: Constipation Last Admin: 03/02/18 10:59 Dose: 100 mg Emollient Ointment (Lansinoh Hpa) 0 gm TOP ASDIRECTED PRN PRN Reason: Sore Nipples Lactated Ringer's (Ringers, Lactated) 1,000 mls @ 150 mls/hr IV ASDIRECTED LOGAN Oxytocin/Sodium Chloride (Oxytocin 30 Unit/500 Ml-Ns) 30 unit in 500 mls @ 2 mls/hr IV TITRATE LOGAN; Protocol Last Titration: 03/01/18 17:59 Dose: 12 munits/min, 12 mls/hr Oxytocin/Sodium Chloride (Oxytocin 30 Unit/500 Ml-Ns) 30 unit in 500 mls @ 500 mls/hr IV TITRATE LOGAN Last Infusion: 03/01/18 22:03 Dose: 125 mls/hr Tranexamic Acid 1,000 mg/ (Sodium Chloride) 110 mls @ 660 mls/hr IV ONETIME PRN PRN Reason: Bleeding Sodium Chloride (Normal Saline) 1,000 mls @ 5 mls/hr IV ASDIRECTED LOGAN Last Infusion: 03/02/18 21:05 Dose: 0 mls/hr Lidocaine HCl (Xylocaine 1%) 50 ml INJECT ONETIME PRN PRN Reason: Laceration repair Methylergonovine Maleate (Methergine) 0.2 mg IM ASDIRECTED PRN PRN Reason: Post Hemorrhage Misoprostol (Cytotec) 200 mcg PO ONETIME PRN PRN Reason: Post Hemorrhage Nalbuphine HCl (Nubain) 10 mg IVPUSH Q1H PRN PRN Reason: Pain (severe 7-10) Oxycodone HCl (Oxycodone) 5 mg PO Q2H PRN PRN Reason: Pain Last Admin: 03/03/18 04:26 Dose: 5 mg Sodium Chloride (Saline Flush) 10 ml FLUSH ASDIRECTED PRN PRN Reason: Keep Vein Open Sodium Chloride (Saline Flush) 2.5 ml FLUSH ASDIRECTED PRN PRN Reason: Keep Vein Open Sterile Water (Sterile Water For Irrigation) 1,000 ml IRR ASDIRECTED PRN PRN Reason: delivery Terbutaline Sulfate (Brethine) 0.25 mg SUBCUT ASDIRECTED PRN PRN Reason: Tacysystole Witch Marci (Tucks) 1 pad TOP ASDIRECTED PRN PRN Reason: comfort care Discontinued Medications Benzocaine/Menthol (Dermoplast Pain Relief 20%-0.5% Andrews) Confirm Administered Dose 78 gm .ROUTE .STK-MED ONE Stop: 03/01/18 21:45 Docusate Sodium (Colace) Confirm Administered Dose 100 mg .ROUTE .STK-MED ONE Stop: 03/01/18 21:45 Magnesium Sulfate 4 gm/ Premix 100 mls @ 300 mls/hr IV BOLUS ONE Stop: 03/01/18 13:32 Last Admin: 03/01/18 14:20 Dose: 300 mls/hr Magnesium Sulfate (Magnesium Sulfate 40 Gm In Water 1000 Ml) 40 gm in 1,000 mls @ 37.5 mls/hr IV ASDIRECTED LOGAN Stop: 03/02/18 21:00 Last Infusion: 03/02/18 21:00 Dose: 0 gm/hr, 0 mls/hr Fentanyl/Bupivacaine HCl (Xtyonhon-Dhdcl-Ac 2 Mcg/Ml-0.125%) Confirm Administered Dose 100 mls @ as directed EP .STK-MED ONE Stop: 03/01/18 19:38 Ropivacaine (Naropin 0.2%) Confirm Administered Dose 20 ml .ROUTE .[facility] ONE Stop: 03/01/18 19:39 - Infant Interaction Disposition, : to Nursery Feeding: Breastfed Infant; Nursed Well Support Person: Significant Other - Recovery Exam Fundal Tone: Firm Fundal Level: 1 Fingerbreadths Below Umbilicus Fundal Placement: Midline Lochia Amount: Scant Lochia Color: Brownish Perineum Description: Intact, Minimal Bruising/Swelling Episiotomy/Laceration: None Bladder Status: Voiding Urinary Elimination: Voided - Exam General: Alert, Oriented Neck: Supple Lungs: Normal Respiratory Effort GI/Abdominal Exam: Soft, Non-Tender, No Organomegaly, No Distention, No Mass Extremities: Normal Inspection, Non-Tender. No: No Pedal Edema (trace) Skin: Warm, Dry, Intact Neurological: No New Focal Deficit Psy/Mental Status: Alert, Normal Affect, Normal Mood - Problem List & Annotations (1) Twin SNOMED Code(s): 80986032 Code(s): Z37.9 - OUTCOME OF DELIVERY, UNSPECIFIED Status: Acute Current Visit: Yes (2) Preeclampsia SNOMED Code(s): 615815835 Code(s): O14.90 - UNSPECIFIED PRE-ECLAMPSIA, UNSPECIFIED TRIMESTER Status: Acute Current Visit: Yes (3) Gestational thrombocytopenia without hemorrhage SNOMED Code(s): 895631022 Code(s): O99.119 - OTH DIS OF BLD/BLD-FORM ORG/IMMUN MECHNSM COMP PREG,UNSP TRI; D69.6 - THROMBOCYTOPENIA, UNSPECIFIED Status: Acute Current Visit: Yes Qualifiers: Trimester: third trimester Qualified Code(s): O99.113 - Other diseases of the blood and blood-forming organs and certain disorders involving the immune mechanism complicating , third trimester; D69.6 - Thrombocytopenia, unspecified (4) Elderly multigravida delivered SNOMED Code(s): 391269353 Code(s): O09.529 - SUPERVISION OF ELDERLY MULTIGRAVIDA, UNSPECIFIED TRIMESTER Status: Acute Current Visit: Yes - Problem List Review Problem List Initiated/Reviewed/Updated: Yes - My Orders Last 24 Hours: My Active Orders 03/02/18 08:15 Deep Tendon Reflexes [WOMSER] Q1H 03/02/18 09:15 Deep Tendon Reflexes [WOMSER] Q1H 03/02/18 10:15 Deep Tendon Reflexes [WOMSER] Q1H 03/02/18 11:15 Deep Tendon Reflexes [WOMSER] Q1H 03/02/18 12:15 Deep Tendon Reflexes [WOMSER] Q1H 03/02/18 Dinner Regular Diet [DIET] - Assessment Assessment:: PPD#2 after , induction twins 37 weeks, mild preeclampsia, gestational thrombocytopenia. Platelets continue to improve, BP normal to mildly elevated off magnesium. good diuresis. discharge instructions reviewed, she will return in 2 days for BP check to the clinic. - Plan Plan:: Continue magnesium until 24 hour . Rate decreased due to mg level. Continue prn labetalol as needed (none has been given to this point). Recheck platelets in am.
--- NOTE | 2018-03-03 09:03 | PCM48HPAN ---
Post Anesthesia Note - EVALUATION WITHIN 48HRS OF ANESTHETIC Vital Signs in Normal Range: Yes Patient Participated in Evaluation: Yes Respiratory Function Stable: Yes Airway Patent: Yes Cardiovascular Function Stable: Yes Hydration Status Stable: Yes Pain Control Satisfactory: Yes Nausea and Vomiting Control Satisfactory: Yes Mental Status Recovered: Yes Resp Rate: 18
== END 2018-03-03 13:50 | disposition home or self-care (01) | DRG 560 ==
LOC: MW.OBCHECK 12:43 → MW.OB 13:27 → OBSVTOIN 20:42 → MW.OB 20:42
PROVIDERS: ADMIT Obstetrics & Gynecology; ATTEND Obstetrics & Gynecology
PROC: 10E0XZZ Delivery of Products of Conception, External Approach (ICD-10-PCS; principal; 2018-03-01)
PROC: 10907ZC Drainage of Amniotic Fluid, Therapeutic from Products of Conception, Via Natural or Artificial Opening (ICD-10-PCS; 2018-03-01)
PROC: 3E033VJ Introduction of Other Hormone into Peripheral Vein, Percutaneous Approach (ICD-10-PCS; 2018-03-01)
PROC: 00HU33Z Insertion of Infusion Device into Spinal Canal, Percutaneous Approach (ICD-10-PCS; 2018-03-01)
DX: O14.94 Unspecified pre-eclampsia, complicating childbirth (principal); O99.12 Other diseases of the blood and blood-forming organs and certain disorders involving the immune mechanism complicating childbirth; Q20.5 Discordant atrioventricular connection; Z3A.37 37 weeks gestation of pregnancy; Z37.2 Twins, both liveborn
CPT/HCPCS: 36415; 59025; 59409; 76815; 82803; 83735; 85027; 86850; 86900; 86901; 88307; A9270-GY; J2590; J3475; J7040